=== PATIENT | female | born 1990 | race Caucasian/White ===

== ENCOUNTER 2019-04-27 20:12 | Emergency (ER) | payer OTHER ==
--- NOTE | 2019-04-27 20:26 | ED Physician Documentation ---
Sore Throat/Dental Pain - HISTORIAN Historian: patient - HPI Stated Complaint: sore throat Chief Complaint: Sore Throat Additional Information: Patient presents to ED with a 1 day history of sore throat. Patient denies fever. Onset: days ago (1) Associated Symptoms: sore throat, moderate. denies: fever, chills, runny nose, congestion - ROS CONST: no problems CVS/RESP: denies: shortness of breath GI/: denies: nausea, vomiting MS/SKIN/LYMPH: denies: muscle aches NEURO/PSYCH: headache - PAST HX Past History: none Other History: none Allergies/Adverse Reactions: Allergies Allergy/AdvReac Type Severity Reaction Status Date / Time No Known Drug Allergies Allergy Verified 04/27/19 20:31 Home Medications: Ambulatory Orders Medication Instructions Recorded Cefdinir 300 mg PO BID #14 capsule 04/27/19 predniSONE [Deltasone] 20 mg PO DIRECTED #6 tablet 04/27/19 - SOCIAL HX Smoking History: cigarettes, greater than 1 pack/day Alcohol Use: occasionally Drug Use: none - FAMILY HX Family History: No - VITAL SIGNS Vital Signs: Vital Signs Temp Pulse Resp BP Pulse Ox 98.0 F 106 H 16 165/109 97 04/27/19 20:22 04/27/19 20:22 04/27/19 20:22 04/27/19 20:22 04/27/19 20:22 - REVIEWED ASSESSMENTS Nursing Assessment Reviewed: Yes Vitals Reviewed: Yes ED Results Lab/Radiology - Orders Orders: ED Orders Category Date Time Status Rapid Strep [GRP A STREP SCREEN] Stat Lab 04/27/19 Ordered Lidocaine 1% 5ml [Xylocaine] Med 04/27/19 20:28 Discontinued 50 mg IM NOW ONE cefTRIAXone SODIUM [Rocephin] 1 gm Med 04/27/19 20:28 Discontinued Lidocaine 1% 5ml [Xylocaine] 2.1 ml IM NOW methylPREDNISolone SOD SUCC [SOLU-Medrol] Med 04/27/19 20:28 Discontinued 125 mg IM NOW ONE Sore throat Physical Exam - EXAM General Appearance: no acute distress, alert Head/Neck: No: cervical lymphadenopathy, neck mass/swelling Eyes: PERRL Mouth/Throat: pharyngeal erythema, tonsillar swelling (R>L) Ear/Nose: nml inspection Respiratory: no resp. distress, breath sounds nml CVS: reg. rate & rhythm, heart sounds nml Abdomen: soft, normal bowel sounds Extremities: non-tender Skin: warm/dry Neuro/Psych: oriented x3, mood/affect nml Discharge Clincal Impression: Acute bacterial tonsillitis Prescriptions: Cefdinir 300 mg PO BID #14 capsule predniSONE [Deltasone] 20 mg PO DIRECTED #6 tablet Referrals: Zul[facility] [NURSE PRACTITIONER] - 2 Days Additional Instructions: 1. Start oral antibiotics and Prednisone tomorrow. Take as directed until gone 2. Tylenol as needed for pain or fever 3. Warm salt water gargles after meals and snacks 4. Smoking cessation recommended 5. Follow up with PCP within 1 week. Re-evaluated right tonsil swelling 6. Return to ER for new or worsening symptoms Condition: Stable Disposition: 01 HOME, SELF-CARE Decision to Admit: NO Date of Decison to Admit: 04/27/19 Decision Time: 20:47
[2019-04-27] MEDS: cefTRIAXone SODIUM 1 GM in Lidocaine 1% 5ml 2.1 ML IM ONE (20:52)
[2019-04-27] MEDS: methylPREDNISolone SOD SUCC 125 MG/2 ML VIAL IM ONE (20:55)
[2019-04-27] MEDS: Lidocaine 1% 5ml 10 MG/ML VIAL IM ONE (20:58)
[2019-04-27 21:13] VITALS: BP 149/106
== END 2019-04-27 21:10 | disposition home or self-care (01) ==
LOC: ED 20:12
DX: J03.90 Acute tonsillitis, unspecified (principal); F17.210 Nicotine dependence, cigarettes, uncomplicated
CPT/HCPCS: 87070; 87880; J0696; J2930